=== PATIENT | female | born 2000 | race Caucasian/White ===

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

== ENCOUNTER 2020-01-21 12:50 | Emergency (ER) | payer OTHER ==
[~2020-01-21] VITALS: Ht 160 cm; Wt 81.6 kg
[~2020-01-21 12:50] MED LIST changes: +ZYRTEC10 M2 PO
[2020-01-21 12:57] VITALS: BP 147/90
[2020-01-21] MEDS ORDERED: IBU800 MG PO (15:17)
== END 2020-01-21 15:30 | disposition home or self-care (01) ==
LOC: ED 12:50
DX: M94.0 Chondrocostal junction syndrome [Tietze] (principal); Z88.1 Allergy status to other antibiotic agents; Z88.2 Allergy status to sulfonamides; Z88.8 Allergy status to other drugs, medicaments and biological substances

== ENCOUNTER 2020-05-24 14:10 | Emergency (ER) | payer OTHER ==
[~2020-05-24] VITALS: Ht 160 cm; Wt 90.7 kg
[~2020-05-24 14:10] MED LIST changes: +IBU800 MG PO
[2020-05-24 15:05] VITALS: BP 137/68
[2020-05-24 18:44] LABS: BASO # 0.1 10*3/uL (0.0-0.1); EOS # 0.1 10*3/uL (0.0-0.4); HEMATOCRIT 44.2 % (37.0-47.0); LYMPH # 1.9 10*3/uL (1.3-4.4); LYMPH % 22.4 % (27.0-41.0); MEAN CELL VOLUME 89.5 fl (81.0-99.0); MEAN CORPUSCULAR HGB 28.5 pg (27.0-31.0); MEAN CORPUSCULAR HGB CONC 31.9 g/dl (33.0-37.0); MEAN PLATELET VOLUME 10.1 fl (9.6-12.3); MONO # 0.4 10*3/uL (0.1-1.0); MONO % 5.1 % (3.0-9.0); NEUT # 5.9 10*3/uL (2.3-7.9); NEUT % 70.3 % (47.0-73.0); PLATELET COUNT AUTOMATED 303 10*3/uL (130-400); RED BLOOD COUNT 4.94 10*6/uL (4.10-5.10); RED CELL DISTRI WIDTH 12.1 % (0-14.5); WHITE BLOOD COUNT 8.4 10*3/uL (4.8-10.8)
[2020-05-24 19:01] LABS: ALBUMIN 4.1 gm/dl (3.1-4.5); ALKALINE PHOSPHATASE 136 U/L (45-117); BUN 9 mg/dl (7-24); CHLORIDE 107 mmol/L (98-107); CREATININE 0.79 mg/dL (0.55-1.02); POTASSIUM 3.9 mmol/L (3.5-5.1); SGOT/AST 22 IU/L (3-35); SGPT/ALT 35 U/L (12-78); SODIUM 140 mmol/L (136-145)
[2020-05-24 19:37] LABS: BILIRUBIN Negative (Negative); BLOOD Negative (Negative); CLARITY Cloudy (Clear); COLOR Yellow (Yellow); GLUCOSE Negative (Negative); KETONE Negative (Negative); LEUKO ESTERASE Trace (Negative); NITRITE Negative (Negative); PH 6.5 (4.5-8.0); UROBILINOGEN 0.2 E.U./dl (0.0-1.0)
[2020-05-24 19:57] LABS: BACTERIA 2+
[2020-05-24] MEDS ORDERED: PROTONIX40 MG PO (20:08)
== END 2020-05-24 20:23 | disposition home or self-care (01) ==
LOC: ED 14:10
PROVIDERS: Nurse Practitioner Family
DX: R12 Heartburn (principal); Z88.8 Allergy status to other drugs, medicaments and biological substances; Z79.899 Other long term (current) drug therapy

== ENCOUNTER 2020-06-23 16:29 | Emergency (ER) | payer OTHER ==
[~2020-06-23] VITALS: Ht 160 cm; Wt 90.7 kg
[~2020-06-23 16:29] MED LIST changes: +PROTONIX40 MG PO
[2020-06-23 16:50] VITALS: BP 144/93
== END 2020-06-23 19:38 | disposition home or self-care (01) ==
LOC: ED 16:29
DX: T78.49XA Other allergy, initial encounter (principal); F17.200 Nicotine dependence, unspecified, uncomplicated; Z91.040 Latex allergy status; Z88.1 Allergy status to other antibiotic agents; Z88.2 Allergy status to sulfonamides; Z88.8 Allergy status to other drugs, medicaments and biological substances; Y92.89 Other specified places as the place of occurrence of the external cause

== ENCOUNTER 2020-07-09 12:44 | Emergency (ER) | payer OTHER ==
[~2020-07-09] VITALS: Ht 154.9 cm; Wt 93.4 kg
[2020-07-09 12:51] VITALS: BP 140/91
[2020-07-09 13:24] LABS: BILIRUBIN Negative (Negative); BLOOD Negative (Negative); CLARITY Clear (Clear); COLOR Yellow (Yellow); GLUCOSE Negative (Negative); KETONE Negative (Negative); LEUKO ESTERASE Negative (Negative); NITRITE Negative (Negative); UROBILINOGEN 0.2 E.U./dl (0.0-1.0)
[2020-07-09 13:27] LABS: PH 8.5 (4.5-8.0)
[2020-07-09 13:31] LABS: BACTERIA TRACE
[2020-07-09 13:40] LABS: BASO # 0.1 10*3/uL (0.0-0.1); EOS # 0.1 10*3/uL (0.0-0.4); HEMATOCRIT 42.7 % (37.0-47.0); LYMPH # 1.8 10*3/uL (1.3-4.4); LYMPH % 19.1 % (27.0-41.0); MEAN CELL VOLUME 91.2 fl (81.0-99.0); MEAN CORPUSCULAR HGB 29.3 pg (27.0-31.0); MEAN CORPUSCULAR HGB CONC 32.1 g/dl (33.0-37.0); MONO # 0.6 10*3/uL (0.1-1.0); MONO % 6.5 % (3.0-9.0); NEUT # 6.8 10*3/uL (2.3-7.9); NEUT % 72.1 % (47.0-73.0); PLATELET COUNT AUTOMATED 282 10*3/uL (130-400); RED BLOOD COUNT 4.68 10*6/uL (4.10-5.10); RED CELL DISTRI WIDTH 12.5 % (0-14.5); WHITE BLOOD COUNT 9.4 10*3/uL (4.8-10.8)
[2020-07-09 13:54] LABS: ALBUMIN 3.6 gm/dl (3.1-4.5); ALKALINE PHOSPHATASE 123 U/L (45-117); BUN 13 mg/dl (7-24); CHLORIDE 108 mmol/L (98-107); CREATININE 0.87 mg/dL (0.55-1.02); LIPASE 56 U/L (73-393); POTASSIUM 4.2 mmol/L (3.5-5.1); SGOT/AST 15 IU/L (3-35); SGPT/ALT 28 U/L (12-78); SODIUM 140 mmol/L (136-145); TOTAL PROTEIN 7.5 gm/dL (6.4-8.2)
== END 2020-07-09 15:30 | disposition home or self-care (01) ==
LOC: ED 12:44
PROVIDERS: Physician Assistant
DX: R10.11 Right upper quadrant pain (principal); M54.9 Dorsalgia, unspecified; R39.15 Urgency of urination; Z87.442 Personal history of urinary calculi; Z91.040 Latex allergy status; Z88.1 Allergy status to other antibiotic agents; Z88.8 Allergy status to other drugs, medicaments and biological substances; Z88.2 Allergy status to sulfonamides; Z79.2 Long term (current) use of antibiotics; Z79.899 Other long term (current) drug therapy; Z96.22 Myringotomy tube(s) status

== ENCOUNTER → 2020-07-19 | Outpatient (CLI) | payer OTHER ==
[~2020-07-19] MED LIST changes: +CYCLOBENZAPRINE5 M3 PO; +NAPROXEN250 MG PO
== END | disposition home or self-care (01) ==
LOC: NM 01:36
PROVIDERS: ATTEND Nurse Practitioner Family
DX: R10.11 Right upper quadrant pain (principal)

== ENCOUNTER 2020-08-05 01:32 | Emergency (ER) | payer OTHER ==
[~2020-08-05] VITALS: Ht 154.9 cm; Wt 90.7 kg
[~2020-08-05 01:32] MED LIST changes: -CYCLOBENZAPRINE5 M3 PO; -NAPROXEN250 MG PO
[2020-08-05 01:39] VITALS: BP 131/89
[2020-08-05 02:23] LABS: BASO # 0.1 10*3/uL (0.0-0.1); BASO % 1.2 % (0.0-1.0); EOS # 0.1 10*3/uL (0.0-0.4); EOS % 1.5 % (1.0-4.0); HEMATOCRIT 41.6 % (37.0-47.0); LYMPH # 2.5 10*3/uL (1.3-4.4); LYMPH % 28.8 % (27.0-41.0); MEAN CELL VOLUME 91.6 fl (81.0-99.0); MEAN CORPUSCULAR HGB 29.7 pg (27.0-31.0); MEAN CORPUSCULAR HGB CONC 32.5 g/dl (33.0-37.0); MEAN PLATELET VOLUME 10.3 fl (9.6-12.3); MONO # 0.7 10*3/uL (0.1-1.0); MONO % 8.1 % (3.0-9.0); NEUT # 5.2 10*3/uL (2.3-7.9); NEUT % 60.2 % (47.0-73.0); PLATELET COUNT AUTOMATED 287 10*3/uL (130-400); RED BLOOD COUNT 4.54 10*6/uL (4.10-5.10); RED CELL DISTRI WIDTH 12.5 % (0-14.5); WHITE BLOOD COUNT 8.6 10*3/uL (4.8-10.8)
[2020-08-05 02:38] LABS: ALBUMIN 3.8 gm/dl (3.1-4.5); ALKALINE PHOSPHATASE 101 U/L (45-117); BUN 11 mg/dl (7-24); CHLORIDE 109 mmol/L (98-107); CREATININE 1.04 mg/dL (0.55-1.02); LIPASE 44 U/L (73-393); POTASSIUM 4.2 mmol/L (3.5-5.1); SGOT/AST 12 IU/L (3-35); SGPT/ALT 28 U/L (12-78); SODIUM 140 mmol/L (136-145); TOTAL PROTEIN 7.6 gm/dL (6.4-8.2)
== END 2020-08-05 06:41 | disposition home or self-care (01) ==
LOC: ED 01:32
PROVIDERS: Emergency Medicine
DX: R07.89 Other chest pain (principal); R10.11 Right upper quadrant pain; I10 Essential (primary) hypertension; F17.200 Nicotine dependence, unspecified, uncomplicated; Z91.040 Latex allergy status; Z88.1 Allergy status to other antibiotic agents; Z88.8 Allergy status to other drugs, medicaments and biological substances; Z88.2 Allergy status to sulfonamides; Z79.2 Long term (current) use of antibiotics; Z79.899 Other long term (current) drug therapy; Z96.22 Myringotomy tube(s) status

== ENCOUNTER 2020-09-16 06:27 | Emergency (ER) | payer OTHER ==
[~2020-09-16] VITALS: Ht 154.9 cm; Wt 92.1 kg
[2020-09-16 06:35] VITALS: BP 130/75
[2020-09-16 06:59] LABS: BILIRUBIN Negative (Negative); BLOOD Negative (Negative); CLARITY Clear (Clear); COLOR Yellow (Yellow); GLUCOSE Negative (Negative); KETONE Negative (Negative); LEUKO ESTERASE Negative (Negative); NITRITE Negative (Negative); PH 5.5 (4.5-8.0); UROBILINOGEN 0.2 E.U./dl (0.0-1.0)
[2020-09-16] MEDS ORDERED: NAPROXEN250 MG PO (07:10)
[2020-09-16] MEDS ORDERED: TYLENOL325 M1 PO (07:10)
[2020-09-16] MEDS ORDERED: CYCLOBENZAPRINE5 M3 PO (07:10)
[2020-09-16 07:27] LABS: BACTERIA 1+
== END 2020-09-16 07:25 | disposition home or self-care (01) ==
LOC: ED 06:27
PROVIDERS: Internal Medicine
DX: R10.11 Right upper quadrant pain (principal); M54.9 Dorsalgia, unspecified; Z91.040 Latex allergy status; Z88.8 Allergy status to other drugs, medicaments and biological substances; Z88.2 Allergy status to sulfonamides; Z79.899 Other long term (current) drug therapy; Z98.890 Other specified postprocedural states

== ENCOUNTER 2020-11-29 16:44 | Emergency (ER) | payer OTHER ==
[~2020-11-29] VITALS: Ht 154.9 cm; Wt 88.5 kg
[~2020-11-29 16:44] MED LIST changes: +CYCLOBENZAPRINE5 M3 PO; +NAPROXEN250 MG PO
[2020-11-29 16:51] VITALS: BP 146/76
[2020-11-29] MEDS ORDERED: KENALOG 0.025%15 GM T (17:10)
== END 2020-11-29 19:58 | disposition home or self-care (01) ==
LOC: ED 16:44
DX: L55.9 Sunburn, unspecified (principal); Z91.040 Latex allergy status; Z88.1 Allergy status to other antibiotic agents; Z88.8 Allergy status to other drugs, medicaments and biological substances; Z88.2 Allergy status to sulfonamides; Z79.2 Long term (current) use of antibiotics; Z79.899 Other long term (current) drug therapy; Z96.22 Myringotomy tube(s) status

== ENCOUNTER 2020-12-30 17:01 | Emergency (ER) | payer OTHER ==
[~2020-12-30] VITALS: Ht 154.9 cm; Wt 88.5 kg
[~2020-12-30 17:01] MED LIST changes: +KENALOG 0.025%15 GM T
[2020-12-30 17:09] VITALS: BP 137/82
[2020-12-30 17:23] LABS: BASO # 0.1 10*3/uL (0.0-0.1); EOS # 0.1 10*3/uL (0.0-0.4); EOS % 1.3 % (1.0-4.0); HEMATOCRIT 42.7 % (37.0-47.0); LYMPH # 1.6 10*3/uL (1.3-4.4); LYMPH % 23.3 % (27.0-41.0); MEAN CELL VOLUME 88.8 fl (81.0-99.0); MEAN CORPUSCULAR HGB 28.9 pg (27.0-31.0); MEAN CORPUSCULAR HGB CONC 32.6 g/dl (33.0-37.0); MEAN PLATELET VOLUME 10.7 fl (9.6-12.3); MONO # 0.4 10*3/uL (0.1-1.0); MONO % 6.2 % (3.0-9.0); NEUT # 4.6 10*3/uL (2.3-7.9); NEUT % 68.1 % (47.0-73.0); PLATELET COUNT AUTOMATED 304 10*3/uL (130-400); RED BLOOD COUNT 4.81 10*6/uL (4.10-5.10); RED CELL DISTRI WIDTH 12.5 % (0-14.5); WHITE BLOOD COUNT 6.8 10*3/uL (4.8-10.8)
[2020-12-30 17:40] LABS: ALBUMIN 3.9 gm/dl (3.1-4.5); ALKALINE PHOSPHATASE 112 U/L (45-117); BUN 11 mg/dl (7-24); CHLORIDE 109 mmol/L (98-107); CREATININE 0.86 mg/dL (0.55-1.02); LIPASE 53 U/L (73-393); POTASSIUM 3.9 mmol/L (3.5-5.1); SGOT/AST 26 IU/L (3-35); SGPT/ALT 36 U/L (12-78); SODIUM 137 mmol/L (136-145); TOTAL PROTEIN 7.9 gm/dL (6.4-8.2)
[2020-12-30 17:44] LABS: BILIRUBIN Negative (Negative); BLOOD 3+ (Negative); CLARITY Cloudy (Clear); COLOR Dark Yellow (Yellow); GLUCOSE Negative (Negative); KETONE Trace (Negative); LEUKO ESTERASE Trace (Negative); NITRITE Negative (Negative); PH 5.5 (4.5-8.0); SPECIFIC GRAVITY >= 1.030 (1.001-1.030)
[2020-12-30 17:52] LABS: BACTERIA 2+; EPITHELIAL CELLS TNTC; RBC TNTC rbc/hpf (0-2)
[2020-12-30 17:53] LABS: MUCOUS TRACE
== END 2020-12-30 18:15 | disposition home or self-care (01) ==
LOC: ED 17:01
PROVIDERS: Emergency Medicine
DX: G89.29 Other chronic pain (principal); R10.13 Epigastric pain; N93.8 Other specified abnormal uterine and vaginal bleeding; R11.0 Nausea; I10 Essential (primary) hypertension; Z91.040 Latex allergy status; Z88.1 Allergy status to other antibiotic agents; Z88.8 Allergy status to other drugs, medicaments and biological substances; Z88.2 Allergy status to sulfonamides; Z79.2 Long term (current) use of antibiotics; Z79.899 Other long term (current) drug therapy; Z96.22 Myringotomy tube(s) status

== ENCOUNTER → 2021-02-12 | Outpatient (CLI) | payer OTHER | END | disposition home or self-care (01) | LOC: US 02-01 13:30 | PROVIDERS: ATTEND Nurse Practitioner Women's Health | DX: N93.9 Abnormal uterine and vaginal bleeding, unspecified (principal) ==

== ENCOUNTER 2021-03-20 01:48 | Emergency (ER) | payer OTHER ==
[2021-03-20 01:54] VITALS: BP 142/90
[2021-03-20 04:01] LABS: BASO # 0.1 10*3/uL (0.0-0.1); BASO % 0.8 % (0.0-1.0); EOS # 0.1 10*3/uL (0.0-0.4); EOS % 0.7 % (1.0-4.0); HEMATOCRIT 41.3 % (37.0-47.0); LYMPH # 2.7 10*3/uL (1.3-4.4); LYMPH % 21.1 % (27.0-41.0); MEAN CELL VOLUME 90.4 fl (81.0-99.0); MEAN CORPUSCULAR HGB 29.3 pg (27.0-31.0); MEAN CORPUSCULAR HGB CONC 32.4 g/dl (33.0-37.0); MEAN PLATELET VOLUME 10.3 fl (9.6-12.3); MONO # 0.7 10*3/uL (0.1-1.0); MONO % 5.8 % (3.0-9.0); NEUT % 71.3 % (47.0-73.0); PLATELET COUNT AUTOMATED 298 10*3/uL (130-400); RED BLOOD COUNT 4.57 10*6/uL (4.10-5.10); RED CELL DISTRI WIDTH 12.4 % (0-14.5); WHITE BLOOD COUNT 12.6 10*3/uL (4.8-10.8)
[2021-03-20 04:13] LABS: BILIRUBIN Negative (Negative); BLOOD Negative (Negative); CLARITY Clear (Clear); COLOR Yellow (Yellow); GLUCOSE Negative (Negative); KETONE Negative (Negative); LEUKO ESTERASE 1+ (Negative); NITRITE Negative (Negative); SPECIFIC GRAVITY 1.015 (1.001-1.030)
[2021-03-20 04:17] LABS: ALBUMIN 3.8 gm/dl (3.1-4.5); ALKALINE PHOSPHATASE 80 U/L (45-117); CHLORIDE 107 mmol/L (98-107); CREATININE 0.76 mg/dL (0.55-1.02); LIPASE 50 U/L (73-393); SGPT/ALT 16 U/L (12-78); SODIUM 137 mmol/L (136-145); TOTAL PROTEIN 7.8 gm/dL (6.4-8.2)
[2021-03-20 04:18] LABS: BUN 11 mg/dl (7-24); SGOT/AST 8 IU/L (3-35)
[2021-03-20 04:46] LABS: EPITHELIAL CELLS 16-20
[2021-03-20 04:47] LABS: BACTERIA 1+
[2021-03-20] MEDS ORDERED: MACROBID100 M1 PO (08:08)
== END 2021-03-20 08:15 | disposition home or self-care (01) ==
LOC: ED 01:48
PROVIDERS: Emergency Medicine
DX: O23.91 Unspecified genitourinary tract infection in pregnancy, first trimester (principal); I10 Essential (primary) hypertension; Z3A.01 Less than 8 weeks gestation of pregnancy; Z91.040 Latex allergy status; Z88.1 Allergy status to other antibiotic agents; Z88.8 Allergy status to other drugs, medicaments and biological substances

== ENCOUNTER 2022-07-14 18:23 | Emergency (ER) | payer OTHER ==
[~2022-07-14] VITALS: Ht 157.4 cm; Wt 91.6 kg
[~2022-07-14 18:23] MED LIST changes: +MACROBID100 M1 PO
[2022-07-14 18:31] VITALS: BP 150/91
[2022-07-14 18:56] LABS: BILIRUBIN Negative (Negative); BLOOD Negative (Negative); CLARITY Clear (Clear); COLOR Yellow (Yellow); GLUCOSE Negative (Negative); KETONE Negative (Negative); LEUKO ESTERASE 1+ (Negative); NITRITE Negative (Negative); UROBILINOGEN 0.2 E.U./dl (0.0-1.0)
[2022-07-14 19:07] LABS: BACTERIA 1+; MUCOUS TRACE; RBC 0-2 rbc/hpf (0-2)
[2022-07-14] MEDS ORDERED: CEPHALEXIN500 M1 PO (19:11)
== END 2022-07-14 19:21 | disposition home or self-care (01) ==
LOC: ED 18:23
PROVIDERS: Physician Assistant
DX: O23.41 Unspecified infection of urinary tract in pregnancy, first trimester (principal); N39.0 Urinary tract infection, site not specified; Z91.040 Latex allergy status; Z88.1 Allergy status to other antibiotic agents; Z88.8 Allergy status to other drugs, medicaments and biological substances; Z88.2 Allergy status to sulfonamides; Z98.890 Other specified postprocedural states; Z3A.01 Less than 8 weeks gestation of pregnancy

== ENCOUNTER 2022-11-11 11:42 | Emergency (ER) | payer OTHER ==
[~2022-11-11] VITALS: Ht 157.4 cm; Wt 95.7 kg
[2022-11-11 11:49] VITALS: BP 143/78
[2022-11-11 12:31] LABS: BASO % 0.4 % (0.0-1.0); EOS % 0.4 % (1.0-4.0); HEMATOCRIT 38.3 % (37.0-47.0); LYMPH # 1.6 10*3/uL (1.3-4.4); LYMPH % 15.4 % (27.0-41.0); MEAN CELL VOLUME 91.2 fl (81.0-99.0); MEAN CORPUSCULAR HGB 30.2 pg (27.0-31.0); MEAN CORPUSCULAR HGB CONC 33.2 g/dl (33.0-37.0); MEAN PLATELET VOLUME 10.6 fl (9.6-12.3); MONO # 0.4 10*3/uL (0.1-1.0); MONO % 3.8 % (3.0-9.0); NEUT # 8.2 10*3/uL (2.3-7.9); NEUT % 79.6 % (47.0-73.0); PLATELET COUNT AUTOMATED 227 10*3/uL (130-400); WHITE BLOOD COUNT 10.2 10*3/uL (4.8-10.8)
[2022-11-11 12:54] LABS: ALKALINE PHOSPHATASE 81 U/L (46-116); BUN 5 mg/dl (9-23); CHLORIDE 106 mmol/L (98-107); LIPASE 26 U/L (12-53); POTASSIUM 3.7 mmol/L (3.4-5.1); TOTAL PROTEIN 6.6 gm/dL (6.0-8.0)
[2022-11-11 12:55] LABS: SGPT/ALT < 7 U/L (10-49)
[2022-11-11 13:33] LABS: BILIRUBIN Negative (Negative); BLOOD Negative (Negative); CLARITY Clear (Clear); COLOR Yellow (Yellow); GLUCOSE Negative (Negative); KETONE Trace (Negative); LEUKO ESTERASE Trace (Negative); NITRITE Negative (Negative)
[2022-11-11 13:59] LABS: BACTERIA 2+; EPITHELIAL CELLS TNTC
[2022-11-11] MEDS ORDERED: CEPHALEXIN500 M1 PO (14:25)
== END 2022-11-11 14:38 | disposition home or self-care (01) ==
LOC: ED 11:42
PROVIDERS: Internal Medicine
DX: O23.42 Unspecified infection of urinary tract in pregnancy, second trimester (principal); N39.0 Urinary tract infection, site not specified; Z3A.21 21 weeks gestation of pregnancy; Z91.040 Latex allergy status; Z88.1 Allergy status to other antibiotic agents; Z88.8 Allergy status to other drugs, medicaments and biological substances; Z88.2 Allergy status to sulfonamides; Z98.890 Other specified postprocedural states

== ENCOUNTER 2023-02-04 11:31 | Emergency (ER) | payer OTHER ==
[~2023-02-04] VITALS: Ht 160 cm; Wt 100.2 kg
[2023-02-04 11:43] VITALS: BP 139/91
[2023-02-04 12:15] LABS: BILIRUBIN Negative (Negative); BLOOD Negative (Negative); CLARITY Cloudy (Clear); COLOR Yellow (Yellow); GLUCOSE Negative (Negative); KETONE Trace (Negative); LEUKO ESTERASE Trace (Negative); NITRITE Negative (Negative); PH 6.5 (4.5-8.0)
[2023-02-04 12:33] LABS: BACTERIA 2+; MUCOUS TRACE; RBC 0-2 rbc/hpf (0-2)
[2023-02-04 12:38] LABS: ALKALINE PHOSPHATASE 166 U/L (46-116); BUN 6 mg/dl (9-23); CHLORIDE 106 mmol/L (98-107); POTASSIUM 4.1 mmol/L (3.4-5.1); TOTAL PROTEIN 6.5 gm/dL (6.0-8.0)
[2023-02-04 12:51] LABS: SGPT/ALT < 7 U/L (10-49)
[2023-02-04 13:47] LABS: BASO % 0.4 % (0.0-1.0); EOS % 0.5 % (1.0-4.0); HEMATOCRIT 35.7 % (37.0-47.0); LYMPH # 1.4 10*3/uL (1.3-4.4); LYMPH % 16.1 % (27.0-41.0); MEAN CELL VOLUME 88.1 fl (81.0-99.0); MEAN CORPUSCULAR HGB 29.4 pg (27.0-31.0); MEAN CORPUSCULAR HGB CONC 33.3 g/dl (33.0-37.0); MEAN PLATELET VOLUME 11.1 fl (9.6-12.3); MONO # 0.5 10*3/uL (0.1-1.0); MONO % 5.4 % (3.0-9.0); NEUT # 6.6 10*3/uL (2.3-7.9); NEUT % 77.2 % (47.0-73.0); PLATELET COUNT AUTOMATED 214 10*3/uL (130-400); RED BLOOD COUNT 4.05 10*6/uL (4.10-5.10); RED CELL DISTRI WIDTH 13.2 % (0-14.5); WHITE BLOOD COUNT 8.6 10*3/uL (4.8-10.8)
[2023-02-04] MEDS ORDERED: CEPHALEXIN500 M1 PO (14:18)
== END 2023-02-04 14:39 | disposition home or self-care (01) ==
LOC: ED 11:31
PROVIDERS: Physician Assistant Medical
DX: O23.43 Unspecified infection of urinary tract in pregnancy, third trimester (principal); N39.0 Urinary tract infection, site not specified; R10.2 Pelvic and perineal pain; Z3A.33 33 weeks gestation of pregnancy; Z91.040 Latex allergy status; Z88.1 Allergy status to other antibiotic agents; Z88.2 Allergy status to sulfonamides; Z88.8 Allergy status to other drugs, medicaments and biological substances; Z98.890 Other specified postprocedural states

== ENCOUNTER 2023-05-01 18:04 | Emergency (ER) | payer OTHER ==
[~2023-05-01] VITALS: Ht 160 cm; Wt 95.3 kg
[2023-05-01 18:49] VITALS: BP 142/77
== END 2023-05-01 22:14 | disposition left against medical advice (07) ==
LOC: ED 18:04
DX: R05.9 Cough, unspecified (principal); J02.9 Acute pharyngitis, unspecified; Z88.8 Allergy status to other drugs, medicaments and biological substances; Z88.2 Allergy status to sulfonamides; Z88.1 Allergy status to other antibiotic agents; Z91.040 Latex allergy status; Z53.21 Procedure and treatment not carried out due to patient leaving prior to being seen by health care provider

== ENCOUNTER 2023-06-14 11:19 | Emergency (ER) | payer OTHER ==
[~2023-06-14] VITALS: Ht 160 cm; Wt 98.0 kg
[2023-06-14 11:23] VITALS: BP 146/111
[2023-06-14 11:59] LABS: BILIRUBIN Negative (Negative); BLOOD 3+ (Negative); CLARITY Cloudy (Clear); COLOR Yellow (Yellow); GLUCOSE Negative (Negative); KETONE Negative (Negative); LEUKO ESTERASE 2+ (Negative); NITRITE Negative (Negative); PH 5.5 (4.5-8.0); UROBILINOGEN 0.2 E.U./dl (0.0-1.0)
[2023-06-14 12:11] LABS: EPITHELIAL CELLS 21-30
[2023-06-14 12:12] LABS: BACTERIA 2+; RBC 51-100 rbc/hpf (0-2); WBC 16-20 wbc/hpf (0-5)
[2023-06-14] MEDS ORDERED: PREDNISONE50 MG PO ×2 (12:30)
[2023-06-14] MEDS ORDERED: OMNICEF300 MG PO ×2 (12:30)
[2023-06-14] MEDS ORDERED: PROVENTIL HFA6.7 GM INH ×2 (12:30)
[2023-06-14] MEDS ORDERED: MUCINEX1200 M1 PO ×2 (12:30)
[2023-06-14] MEDS ORDERED: [UNRECOGNIZED DRUG - OTHER] PO ×2 (12:41)
[2023-06-15] MEDS ORDERED: [UNRECOGNIZED DRUG - OTHER] PO (10:24)
[2023-06-15] MEDS ORDERED: OMNICEF300 MG PO (10:24)
[2023-06-15] MEDS ORDERED: PREDNISONE50 MG PO (10:24)
[2023-06-15] MEDS ORDERED: MUCINEX1200 M1 PO (10:24)
[2023-06-15] MEDS ORDERED: PROVENTIL HFA6.7 GM INH (10:24)
== END 2023-06-14 14:59 | disposition home or self-care (01) ==
LOC: ED 11:19
PROVIDERS: Family Medicine
DX: N39.0 Urinary tract infection, site not specified (principal); Z20.822 Contact with and (suspected) exposure to COVID-19; J06.9 Acute upper respiratory infection, unspecified; R06.2 Wheezing; Z91.040 Latex allergy status; Z88.1 Allergy status to other antibiotic agents; Z88.2 Allergy status to sulfonamides; Z79.2 Long term (current) use of antibiotics; Z79.899 Other long term (current) drug therapy; Z96.22 Myringotomy tube(s) status

== ENCOUNTER 2023-09-29 17:31 | Emergency (ER) | payer OTHER ==
[~2023-09-29] VITALS: Ht 157.4 cm; Wt 98.0 kg
[~2023-09-29 17:31] MED LIST changes: +MUCINEX1200 M1 PO; +OMNICEF300 MG PO; +PREDNISONE50 MG PO; +PROVENTIL HFA6.7 GM INH; +[UNRECOGNIZED DRUG - OTHER] PO
[2023-09-29 17:42] VITALS: BP 124/80
[2023-09-29 18:26] LABS: BASO # 0.1 10*3/uL (0.0-0.1); BASO % 0.9 % (0.0-1.0); EOS # 0.1 10*3/uL (0.0-0.4); LYMPH % 22.4 % (27.0-41.0); MEAN CELL VOLUME 89.6 fl (81.0-99.0); MEAN CORPUSCULAR HGB 28.3 pg (27.0-31.0); MEAN CORPUSCULAR HGB CONC 31.6 g/dl (33.0-37.0); MEAN PLATELET VOLUME 10.6 fl (9.6-12.3); MONO # 0.5 10*3/uL (0.1-1.0); MONO % 5.9 % (3.0-9.0); NEUT # 6.1 10*3/uL (2.3-7.9); NEUT % 69.6 % (47.0-73.0); PLATELET COUNT AUTOMATED 271 10*3/uL (130-400); RED BLOOD COUNT 5.02 10*6/uL (4.10-5.10); RED CELL DISTRI WIDTH 12.8 % (0-14.5); WHITE BLOOD COUNT 8.8 10*3/uL (4.8-10.8)
[2023-09-29 18:37] LABS: ACT PARTIAL THROMBO TIME 32.4 SECONDS (20.0-32.1)
[2023-09-29 18:43] LABS: ALKALINE PHOSPHATASE 93 U/L (46-116); BUN 9 mg/dl (9-23); CHLORIDE 106 mmol/L (98-107); LIPASE 36 U/L (12-53); SGPT/ALT 28 U/L (5-49); TOTAL PROTEIN 7.6 gm/dL (6.0-8.0)
[2023-09-29 19:50] LABS: BILIRUBIN Negative (Negative); BLOOD Negative (Negative); CLARITY Clear (Clear); COLOR Yellow (Yellow); GLUCOSE Negative (Negative); KETONE Trace (Negative); LEUKO ESTERASE 2+ (Negative); NITRITE Negative (Negative); SPECIFIC GRAVITY >= 1.030 (1.001-1.030)
[2023-09-29 20:07] LABS: BACTERIA 1+; MUCOUS 2+
[2023-09-29] MEDS ORDERED: Ciprofloxacin Hydrochloride 500 MG TAB PO ONE (20:25)
[2023-09-29] MEDS ORDERED: CIPRO500 MG PO (20:25)
== END 2023-09-29 20:33 | disposition home or self-care (01) ==
LOC: ED 17:31
PROVIDERS: Internal Medicine
DX: N39.0 Urinary tract infection, site not specified (principal); R11.2 Nausea with vomiting, unspecified; Z91.040 Latex allergy status; Z88.1 Allergy status to other antibiotic agents; Z88.2 Allergy status to sulfonamides; Z88.8 Allergy status to other drugs, medicaments and biological substances; Z98.890 Other specified postprocedural states

== ENCOUNTER 2024-04-29 21:08 | Emergency (ER) | payer OTHER ==
[~2024-04-29] VITALS: Ht 160 cm; Wt 96.6 kg
[~2024-04-29 21:08] MED LIST changes: +CIPRO500 MG PO
[2024-04-29 21:15] VITALS: BP 126/88
[2024-04-29] MEDS ORDERED: AMOX-CLAV 875-1 EACH PO (21:24)
[2024-04-29] MEDS ORDERED: Amoxicillin/Clavulanate Pota 875 MG TAB PO ONE (21:25)
== END 2024-04-29 21:36 | disposition home or self-care (01) ==
LOC: ED 21:08
DX: J02.0 Streptococcal pharyngitis (principal); Z91.040 Latex allergy status; Z88.1 Allergy status to other antibiotic agents; Z88.2 Allergy status to sulfonamides; Z88.8 Allergy status to other drugs, medicaments and biological substances; Z98.890 Other specified postprocedural states

== ENCOUNTER 2024-08-10 10:46 | Emergency (ER) | payer OTHER ==
[~2024-08-10] VITALS: Ht 157.4 cm; Wt 97.3 kg
[~2024-08-10 10:46] MED LIST changes: +AMOX-CLAV 875-1 EACH PO
[2024-08-10] MEDS ORDERED: CYCLOBENZAPRINE10 MG PO (11:17)
[2024-08-10] MEDS ORDERED: Acetaminophen/Hydrocodone 5 MG/325 MG TABLET PO ONE (11:20)
== END 2024-08-10 11:24 | disposition home or self-care (01) ==
LOC: ED 10:46
DX: S39.012A Strain of muscle, fascia and tendon of lower back, initial encounter (principal); I10 Essential (primary) hypertension; Z91.040 Latex allergy status; Z88.1 Allergy status to other antibiotic agents; Z88.2 Allergy status to sulfonamides; Z88.8 Allergy status to other drugs, medicaments and biological substances; Z98.890 Other specified postprocedural states; X50.0XXA Overexertion from strenuous movement or load, initial encounter; Y93.89 Activity, other specified; Y92.89 Other specified places as the place of occurrence of the external cause; Y99.8 Other external cause status

== ENCOUNTER 2024-08-29 12:08 | Emergency (ER) | payer OTHER ==
[~2024-08-29] VITALS: Ht 157.4 cm; Wt 95.7 kg
[~2024-08-29 12:08] MED LIST changes: +CYCLOBENZAPRINE10 MG PO
[2024-08-29 12:13] VITALS: BP 131/80
[2024-08-29] MEDS ORDERED: ESCITALOPRAM OXA5 MG PO (12:35)
[2024-08-29] MEDS ORDERED: Lidocaine Hydrochloride 15 ML UDC PO STA (12:37)
[2024-08-29] MEDS ORDERED: BENZOCAINE 20% 11.9 GM GEL T STA (12:37)
[2024-08-29] MEDS ORDERED: Ketorolac Tromethamine 30 MG/ML VIAL IM ONE (12:40)
== END 2024-08-29 13:35 | disposition home or self-care (01) ==
LOC: ED 12:08
DX: K12.0 Recurrent oral aphthae (principal); R53.83 Other fatigue; Z91.040 Latex allergy status; Z88.1 Allergy status to other antibiotic agents; Z88.8 Allergy status to other drugs, medicaments and biological substances; Z88.2 Allergy status to sulfonamides; Z79.899 Other long term (current) drug therapy; Z96.22 Myringotomy tube(s) status

== ENCOUNTER 2024-09-18 13:23 | Emergency (ER) | payer OTHER ==
[~2024-09-18] VITALS: Ht 160 cm; Wt 99.4 kg
[~2024-09-18 13:23] MED LIST changes: +ESCITALOPRAM OXA5 MG PO
[2024-09-18 13:53] VITALS: BP 141/85
[2024-09-18] MEDS ORDERED: Acetaminophen/Oxycodone 5 MG/325 MG TABLET PO ONE (14:00)
[2024-09-18] MEDS ORDERED: MELOXICAM15 MG PO (14:31)
== END 2024-09-18 14:35 | disposition home or self-care (01) ==
LOC: ED 13:23
DX: S63.502A Unspecified sprain of left wrist, initial encounter (principal); S09.90XA Unspecified injury of head, initial encounter; Z91.040 Latex allergy status; Z88.1 Allergy status to other antibiotic agents; Z88.8 Allergy status to other drugs, medicaments and biological substances; Z88.2 Allergy status to sulfonamides; W07.XXXA Fall from chair, initial encounter; Y93.89 Activity, other specified; Y92.89 Other specified places as the place of occurrence of the external cause; Y99.8 Other external cause status

== ENCOUNTER 2024-11-02 10:38 | Emergency (ER) | payer OTHER ==
[~2024-11-02] VITALS: Ht 157.4 cm; Wt 98.9 kg
[~2024-11-02 10:38] MED LIST changes: +MELOXICAM15 MG PO
[2024-11-02 10:45] VITALS: BP 128/85
[2024-11-02] MEDS ORDERED: traMADol Hydrochloride 50 MG TAB PO ONE (12:20)
[2024-11-02] MEDS ORDERED: MELOXICAM15 MG PO (12:21)
== END 2024-11-02 12:23 | disposition home or self-care (01) ==
LOC: ED 10:38
DX: S93.402A Sprain of unspecified ligament of left ankle, initial encounter (principal); Z88.1 Allergy status to other antibiotic agents; Z88.2 Allergy status to sulfonamides; Z88.8 Allergy status to other drugs, medicaments and biological substances; Z91.040 Latex allergy status; Z98.890 Other specified postprocedural states; X50.1XXA Overexertion from prolonged static or awkward postures, initial encounter; Y93.89 Activity, other specified; Y92.89 Other specified places as the place of occurrence of the external cause; Y99.8 Other external cause status

== ENCOUNTER 2025-04-04 09:44 | Emergency (ER) | payer OTHER ==
[~2025-04-04] VITALS: Ht 157.4 cm; Wt 97.1 kg
[2025-04-04 10:05] VITALS: BP 130/82
[2025-04-04 11:28] LABS: BILIRUBIN Negative (Negative); BLOOD Negative (Negative); CLARITY Clear (Clear); COLOR Yellow (Yellow); KETONE Negative (Negative); LEUKO ESTERASE 1+ (Negative); NITRITE Negative (Negative); PH 5.5 (4.5-8.0); SPECIFIC GRAVITY 1.025 (1.001-1.030); UROBILINOGEN 0.2 E.U./dl (0.0-1.0)
[2025-04-04 11:36] LABS: BACTERIA 1+; MUCOUS 1+
[2025-04-04] MEDS ORDERED: PREDNISONE20 M1 PO (11:53)
[2025-04-04] MEDS ORDERED: Acetaminophen/Oxycodone 5 MG/325 MG TABLET PO ONE (11:55)
== END 2025-04-04 12:07 | disposition home or self-care (01) ==
LOC: ED 09:44
PROVIDERS: Nurse Practitioner Family
DX: M54.41 Lumbago with sciatica, right side (principal); I10 Essential (primary) hypertension; Z91.040 Latex allergy status; Z87.440 Personal history of urinary (tract) infections; Z88.1 Allergy status to other antibiotic agents; Z88.8 Allergy status to other drugs, medicaments and biological substances